=== PATIENT | female | born 1945 | race Caucasian/White ===

== ENCOUNTER 2023-07-24 06:02 | Emergency (ER) | payer OTHER ==
[~2023-07-24] VITALS: Ht 152.4 cm; Wt 81.0 kg
[2023-07-24 07:06] LABS: Basophils # (auto) 0.1 10 ^3/uL (0-0.2); Basophils % (auto) 0.5 % (0.0-2.0); Eosinophils # (auto) 0.2 10 ^3/uL (0-0.8); Eosinophils % (auto) 1.2 % (0.0-7.0); Hematocrit 40.8 % (36.0-46.0); Hemoglobin 13.6 g/dL (12.2-16.2); Lymphocytes # (auto) 2.4 10 ^3/uL (0.4-5.4); Lymphocytes % (auto) 16.7 % (10.0-50.0); Mean Corpuscular Hemoglobin 29.4 pg (28.0-32.0); Mean Corpuscular Hgb Conc. 33.3 g/dL (32.0-36.0); Mean Corpuscular Volume 88.3 fL (80.0-100.0); Monocytes # (auto) 0.8 10 ^3/uL (0-1.3); Monocytes % (auto) 5.5 % (0.0-12.0); Neutrophils # (auto) 10.8 10 ^3/uL (1.6-8.6); Neutrophils % (auto) 76.1 % (37.0-80.0); Red Blood Cells 4.62 10^6/uL (4.0-5.20); Red Cell Distribution Width 13.4 % (11.8-14.3); White Blood Cell 14.3 10^3/uL (4.4-10.8)
[2023-07-24 07:21] LABS: Alanine Aminotransferase 16 U/L (7-40); Albumin 4.3 g/dL (3.2-4.8); Alkaline Phosphatase 92 U/L (46-116); Anion Gap 7 (5-15); Aspartate Aminotransferase 18 U/L (13-40); BUN/Creatinine Ratio 24.3 (10.0-20.0); Bilirubin, Total 0.3 mg/dL (0.2-1.0); Blood Urea Nitrogen 28 mg/dL (9-23); Calcium 9.5 mg/dL (8.5-10.1); Carbon Dioxide 28 mmol/L (20-30); Chloride 104 mmol/L (98-107); Glucose 114 mg/dL (74-106); Potassium 3.9 mmol/L (3.5-5.1); Sodium 139 mmol/L (136-145)
[2023-07-24 07:22] LABS: Total Protein 6.8 g/dL (5.7-8.2)
[2023-07-24] MEDS: IPRATROPIUM BROM 0.5 MG/2.5ML INH SOL NEB ONE (07:31)
[2023-07-24] MEDS: ALBUTEROL SULF 2.5 MG/0.5ML(0.5%) NEB SOLN NEB ONE ×2 (07:31→09:32)
[2023-07-24 08:00] VITALS: PULSE 80; RESP 14; TEMP 98.1; O2SAT 94
[2023-07-24] MEDS: cefTRIAXone 1GM/50ML D5W 50 ML IV ONE (08:20)
[2023-07-24] MEDS: methylPREDNISolone SOD SUCC 125 MG/2 ML VL IV ONE (08:20)
[2023-07-24] MEDS: MORPHINE SULFATE INJ 2 MG/ml SYRG IV ONE (08:21)
[2023-07-24] MEDS: ONDANSETRON HCL 4 MG/2 ML VIAL IV ONE (08:21)
[2023-07-24] MEDS: AZITHROMYCIN 500MG/ 250ML 250 ML IV ONE (09:01)
[2023-07-24 09:03] LABS: COVID19 ANTIGEN SOFIA FIA NEGATIVE (NEGATIVE); Rapid Influenza A Negative (Negative); Rapid Influenza B Negative (Negative)
[2023-07-24] MEDS ORDERED: ALBUTEROL SULF 2.5 MG/0.5ML(0.5%) NEB SOLN NEB ONE (09:15)
[2023-07-24 09:22] VITALS: BP 134/68; PULSE 85
[2023-07-24 09:31] VITALS: RESP 22; O2SAT 94
[2023-07-24] MEDS: MAGNESIUM SULFATE 1GM/100ML 100 ML IV ONE (09:56)
[2023-07-24] MEDS ORDERED: PRED20TA2 PO (10:30)
[2023-07-24] MEDS ORDERED: LEVO500T91 PO (10:30)
== END 2023-07-24 11:06 | disposition left against medical advice (07) ==
LOC: EDUNIT# 06:02 → ER 06:02
DX: J44.1 Chronic obstructive pulmonary disease with (acute) exacerbation (principal); I10 Essential (primary) hypertension; F17.210 Nicotine dependence, cigarettes, uncomplicated; Z20.822 Contact with and (suspected) exposure to COVID-19
CPT/HCPCS: 36415; 71045; 80053; 83605; 84484; 85025; 87040; 87426; 87804; 93005; 94640; 94644; 96365; 96366; 96368; 96375; 99291; J0456; J0696; J2270; J2405; J2930; J3475; J7644